=== PATIENT | female | born 1970 | race Caucasian/White ===

== ENCOUNTER 2016-12-16 08:03 | Outpatient (CLI) ==
[2016-04-15 12:14] VITALS: BMI 44.3
--- NOTE | 2016-12-17 10:31 | MAMMO ---
EXAM: Bilateral digital screening mammogram. History: Screening. Comparison: Bilateral mammogram 12/08/2014 Findings: MLO and CC views of bilateral breasts demonstrate scattered fibroglandular breast parench yma. There are no dominant masses, no suspicious microcalcifications and no architectural distortio ns Impression: Stable negative mammogram. Recommend followup routine screening mammography in 1 year. BIRADS 1
== END 2016-12-16 08:04 | disposition home or self-care (01) ==
LOC: RAD 08:03
PROVIDERS: ATTEND Family Medicine
DX: Z12.31 Encounter for screening mammogram for malignant neoplasm of breast (principal)

== ENCOUNTER 2017-05-27 12:15 | Emergency (ER) ==
[2017-05-27 12:25] VITALS: BMI 41.0
--- NOTE | 2017-05-27 12:38 | ED.PDOC ---
General ED Provider: Dr. KRISTIN LOONEY JR Chief Complaint: Respiratory Complaint Stated Complaint: RUNNY NOSE, COUGH, SOA, WHEEZING. [ End ]two days 99.1 98 20 92% 153/106 2/10family states did not take blood pressure medication this morning Time Seen by Physician: 12:38 Mode of Arrival: Walk-In Information Source: Patient Exam Limitations: No limitations Primary Care Provider: JENNIFER STEELE Nursing and Triage Documentation Reviewed and Agree: No Review of Systems - Review Of Systems Constitutional: Reports: Chills, Fever, Malaise Eyes: Reports: No symptoms Ears, Nose, Mouth, Throat: Reports: No symptoms, Nose discharge Respiratory: Reports: Cough (mod nonprod cough), Wheezing Cardiac: Reports: No symptoms GI: Reports: No symptoms : Reports: No symptoms Musculoskeletal: Reports: No symptoms Skin: Reports: No symptoms Neurological: Reports: No symptoms Endocrine: Reports: No symptoms Hematologic/Lymphatic: Reports: No symptoms All Other Systems: Other Past Medical History - Past Medical History Endocrine: Reports: None Cardiovascular: Reports: Hypertension, Other (-double-looped aorta) Respiratory: Reports: Asthma, Pneumonia (-pneumonia multiple times last ?2012) Hematological: Reports: None Gastrointestinal: Reports: GERD Genitourinary: Reports: Kidney stones Neuro/Psych: Reports: None Musculoskeletal: Reports: None Cancer: Reports: Other (left kidney ca) Last Menstrual Period: na Other Pertinent Past Medical History: -left kidney ca--double-looped aorta - Surgical History General Surgical History: Reports: Hysterectomy, Appendectomy, Cholecystectomy, Tonsillectomy, Other (-left kidney ca-) - Family History Family History: Reports: Unknown - Social History Smoking Status: Never smoker Hx Substance Use: No Alcohol Screening: Occasionally Physical Exam - Physical Exam Appearance: Ill-appearing, Obese Ill-appearing: Mild Pain Distress: Mild Eyes: YUNG, EOMI, Conjunctiva clear ENT: Ears normal, Nose normal, Oropharynx normal Neck: Supple Respiratory: Airway patent, Breath sounds clear, Breath sounds equal, Respirations nonlabored Cardiovascular: RRR, Pulses normal, No rub, No murmur GI/: Soft, Nontender, No masses, Bowel sounds normal, No Organomegaly Musculoskeletal: Normal strength, ROM intact, No edema, No calf tenderness Skin: Warm, Dry, Normal color Neurological: Sensation intact, Motor intact, Reflexes intact, Cranial nerves intact, Alert, Oriented Psychiatric: Affect appropriate, Mood appropriate Interpretation - Radiology Interpretation Radiology Interpretation By: Radiologist Radiology Results: Negative Exam Interpreted: CXR Critical Care Note - Critical Care Note Total Time (mins): 0 Course - Course Orders, Labs, Meds: Orders Category Date Time Status ABG DRAW REQUEST Stat CARDIO 05/27/17 13:29 Ordered NEBULIZER TREATMENT Stat CARDIO 05/27/17 13:34 Ordered ABG Stat LAB 05/27/17 13:29 Ordered SPUTUM CULTURE Stat LAB 05/27/17 12:39 Uncollected Albuterol Sulfate 0.083% Neb [Albuterol 0.083% Neb] MEDS 05/27/17 13:33 Discontinued 1 vial NEB ONCE STA CHEST, 2 VIEWS PA & LAT Stat RADS 05/27/17 12:39 Completed Medications Discontinued Medications Generic Name Dose Route Start Last Admin Trade Name Freq PRN Reason Stop Dose Admin Albuterol Sulfate 1 vial 05/27/17 13:33 Albuterol 0.083% Neb NEB 05/27/17 13:34 ONCE STA Vital Signs: Temp Pulse Resp BP Pulse Ox 05/27/17 12:55 98.8 F 90 198/109 H 92 L 05/27/17 12:20 99.1 F 98 H 20 153/106 H 92 L Departure - Departure Time of Disposition: 13:20 Disposition: HOME SELF-CARE Discharge Problem: URTI (acute upper respiratory infection) Instructions: Upper Respiratory Infection (ED) Condition: Good Pt referred to PMD for follow-up: Yes Additional Instructions: increase fluids increase rest Robitussin DM or Robitussin AC for cough return if short of breath or if fever over 101.0 Allergies/Adverse Reactions: Allergies tape Adverse Reaction (Uncoded 05/27/17 12:19) Home Medications: Ambulatory Orders Ranitidine HCl [Zantac] 150 mg PO BID 02/28/13 Bisoprolol Fumarate [Zebeta] 5 mg PO DAILY 08/16/13 Losartan/Hydrochlorothiazide [Hyzaar 50-12.5 Tablet] 1 each PO DAILY 08/16/13
[2017-05-27 12:55] VITALS: BP 198/109; TEMP 98.8
--- NOTE | 2017-05-27 13:08 | DI ---
EXAM: CHEST FRONTAL AND LATERAL VIEWS HISTORY: Cough. COMPARISON: 04/15/2016 FINDINGS: Heart size and mediastinal contour remain within normal limits. No acute infiltrates. Normal vascularity with no pleural fluid or pneumothorax. The bony thorax has no acute finding. IMPRESSION: No acute process.
[2017-05-27] MEDS ORDERED: ALBUTEROL 0.083% NEB NEB STA (13:33)
[2017-05-27 13:42] LABS: ABG BASE EXCESS 1 (-2.0-2.0); ABG HCO3 25.4 (22.0-26.0); ABG PCO2 36.9 mmHg (35-45); ABG PH 7.446 (7.35-7.45); ABG TCO2 26 (22.0-28.0)
== END 2017-05-27 14:11 | disposition home or self-care (01) ==
LOC: ED 12:15
DX: J06.9 Acute upper respiratory infection, unspecified (principal); I10 Essential (primary) hypertension; Z87.01 Personal history of pneumonia (recurrent)
CPT/HCPCS: 82803; 94640; 99283

== ENCOUNTER 2017-12-22 08:03 | Outpatient (CLI) | payer OTHER ==
--- NOTE | 2017-12-23 08:33 | MAMMO ---
EXAM: Bilateral digital screening mammogram (2-D and 3-D) History: Screening Comparison: Bilateral mammogram 12/16/2016 Findings: MLO and CC views of bilateral breasts demonstrate scattered fibroglandular breast parenchy ma. CAD was reviewed by the radiologist. Tomosynthesis was performed. There are no dominant masses, no suspicious microcalcifications and no architectural distortions. Impression: Stable negative mammogram. Recommend followup routine screening mammography in 1 year. BIRADS 1
== END 2017-12-22 08:04 | disposition home or self-care (01) ==
LOC: RAD 08:03
PROVIDERS: ATTEND Family Medicine
DX: Z12.31 Encounter for screening mammogram for malignant neoplasm of breast (principal)
CPT/HCPCS: 77067

== ENCOUNTER 2018-12-23 09:30 | Outpatient (CLI) ==
--- NOTE | 2018-12-24 10:33 | MAMMO ---
EXAM: Bilateral digital screening mammogram (2-D and 3-D) History: Screening Comparison: Bilateral mammogram 12/22/2017 Findings: MLO and CC views of bilateral breasts demonstrate scattered fibroglandular breast parenchy ma. CAD was reviewed by the radiologist. Tomosynthesis was performed. There are no dominant masses , no suspicious microcalcifications and no architectural distortions Impression: Stable negative mammogram. Recommend followup routine screening mammography in 1 year. BI-RADS 1, negative
== END 2018-12-23 09:31 | disposition home or self-care (01) ==
LOC: RAD 09:30
PROVIDERS: ATTEND Family Medicine
DX: Z12.31 Encounter for screening mammogram for malignant neoplasm of breast (principal)